=== PATIENT | male | born 1960 | race Caucasian/White ===

== ENCOUNTER → 2017-02-16 | Outpatient (CLI) | payer BC ==
--- NOTE | 2017-02-20 17:18 | PCVCIMAG ---
APPROVED REPORT Study performed: 02/16/2017 08:04:37 EXAM: Comprehensive 2D, Doppler, and color-flow Echocardiogram Patient Location: Echo lab Other Information Study Quality: Good Indications Murmur Hypertension/HDD 2D Dimensions LVEF(%): 73.82 (>50%) IVSd: 7.37 (7-11mm)LVOT Diam: 22.47 (18-24mm) LVDd: 47.72 mm PWd: 11.84 (7-11mm)Ascending Ao: 33.72 (22-36mm) LVDs: 27.30 (25-40mm) Left Atrium: 34.34 (27-40mm) Aortic Root: 26.92 mm LV Single Plane 4CH: 61.33 % LV Single Plane 2CH: 64.81 %Donohue's LVEF: 63.07 % Biplane EF: 63.4 % Volumes Left Atrial Volume (Systole) Single Plane 4CH: 52.37 mLSingle Plane 2CH: 85.86 mL LA ESV Index: 32.00 mL/m2 Aortic Valve AoV Peak [place].: 3.00 m/s AO Peak Gr.: 35.14 mmHgLVOT Max P.76 mmHg AO Mean Gr.: 22.38 mmHgLVOT Mean P.49 mmHg AO V2 Mean: 2.30 m/sLVOT Max V: 1.24 m/s AO V2 VTI: 69.19 cmLVOT Mean V: 0.89 m/s GLENN (VTI): 1.61 [id number] V1 VTI: 28.03 cm GLENN Vmax: 1.64 cm2 AI Vmax: 3.67 m/sSV (LVOT): 111.07 mL AI [place]: 1.37 m/s2 AI PHT: 773.98 ms Mitral Valve E/A Ratio: 0.9 MV Decel. Time: 253.81 ms MV E Max [place].: 0.86 m/s MV A [place].: 0.93 m/s MV PHT: 75.00 ms MVA (PHT): 2.93 cm2 TDI E/Lateral E': 10.75E/Medial E': 10.75 Medial E' [place].: 0.08 m/s Lateral E' [place].: 0.08 m/s Pulmonary Valve PV Peak [place].: 1.02 m/sPV Peak Gr.: 4.13 mmHg Pulmonary Vein P Vein S: 0.57 m/sP Vein A: 0.49 m/s P Vein D: 0.33 m/sP Vein A Dur.: 96.9 msec P Vein S/D Ratio: 1.73 Tricuspid Valve TR Peak [place].: 1.60 m/s TR Peak Gr.: 10.28 mmHg TV Vmax: 0.70 m/sPA Pressure: 17.00 mmHg Left Ventricle The left ventricle is normal size. There is normal LV segmental wall motion. There is normal left ventricular wall thickness. Left ventricular systolic function is normal. The left ventricular ejection fraction is within the normal range. LVEF is 60-65%. Transmitral Doppler flow pattern suggests impaired LV relaxation. Right Ventricle The right ventricle is normal size. The right ventricular systolic function is normal. Atria The left atrium size is normal. The right atrium size is normal. Aortic Valve Aortic valve is functionally bicuspid. 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 Mild aortic regurgitation. Moderate aortic stenosis. Highest mean aortic valve gradient is 22mmHg. Peak aortic valve gradient is 36mmHg. Calculated GLENN by the continuity equation is 1.4-1.5 cm2. Mitral Valve The mitral valve is normal in structure. There is no mitral valve regurgitation noted. No evidence of mitral valve stenosis. Tricuspid Valve The tricuspid valve is normal in structure. Trace tricuspid regurgitation. Pulmonic Valve The pulmonary valve is normal in structure. There is no pulmonic valvular regurgitation. Great Vessels The aortic root is normal in size. The ascending aorta is normal in size. IVC is normal in size and collapses with >50% inspiration The pulmonary artery is normal. Pericardium There is no pericardial effusion. <Conclusion> The left ventricle is normal size. LVEF is 60-65%. Aortic valve is functionally bicuspid. 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 Mild aortic regurgitation. Moderate aortic stenosis. Highest mean aortic valve gradient is 22mmHg. Peak aortic valve gradient is 36mmHg. Calculated GLENN by the continuity equation is 1.4-1.5 cm2. The mitral valve is normal in structure. The tricuspid valve is normal in structure. Trace tricuspid regurgitation. The pulmonary valve is normal in structure.
== END | disposition home or self-care (01) ==
LOC: PCVCIMAG 07:53
PROVIDERS: ATTEND Internal Medicine
DX: I35.2 Nonrheumatic aortic (valve) stenosis with insufficiency (principal); I07.1 Rheumatic tricuspid insufficiency; E03.9 Hypothyroidism, unspecified
CPT/HCPCS: 93306

== ENCOUNTER → 2019-05-14 | Outpatient (CLI) | payer BC ==
--- NOTE | 2019-05-14 15:47 | PCVCIMAG ---
APPROVED REPORT Study performed: 05/14/2019 13:20:47 EXAM: Comprehensive 2D, Doppler, and color-flow Echocardiogram Patient Location: Echo lab Status: routine BSA: 2.11 HR: 64 bpmBP: 124/90 mmHg Rhythm: NSR Other Information Study Quality: Adequate Risk Factors: Cardiac Risk Factors: HTN Indications Bicuspid aortic valve, aortic stenosis 2D Dimensions IVSd: 15.24 (7-11mm)LVOT Diam: 22.56 (18-24mm) LVDd: 43.53 mm PWd: 15.11 (7-11mm)Ascending Ao: 35.53 (22-36mm) LVDs: 28.11 (25-40mm) Left Atrium: 41.56 (27-40mm) Aortic Root: 35.10 mm LV Single Plane 4CH: 65.19 % LV Single Plane 2CH: 52.95 % Biplane EF: 60.3 % Volumes Left Atrial Volume (Systole) Single Plane 4CH: 74.17 mLSingle Plane 2CH: 117.98 mL LA ESV Index: 46.00 mL/m2 Aortic Valve AoV Peak [place].: 3.61 m/s AO Peak Gr.: 52.06 mmHgLVOT Max P.38 mmHg AO Mean Gr.: 27.89 mmHgLVOT Mean P.97 mmHg AO V2 Mean: 2.50 m/sLVOT Max V: 1.36 m/s AO V2 VTI: 78.60 cmLVOT Mean V: 0.93 m/s GLENN (VTI): 1.58 [id number] V1 VTI: 31.11 cm GLENN Vmax: 1.50 cm2 SV (LVOT): 124.33 mL Mitral Valve E/A Ratio: 0.8 MV Decel. Time: 319.15 ms MV E Max [place].: 0.81 m/s MV A [place].: 1.02 m/s IVRT: 117.65 ms Pulmonary Valve PV Peak [place].: 1.19 m/sPV Peak Gr.: 5.63 mmHg Pulmonary Vein P Vein S: 0.39 m/sP Vein A: 0.35 m/s P Vein D: 0.50 m/sP Vein A Dur.: 134.9 msec P Vein S/D Ratio: 0.78 Tricuspid Valve TR Peak [place].: 2.14 m/s TR Peak Gr.: 18.32 mmHg Left Ventricle The left ventricle is normal size. There is normal LV segmental wall motion. There is normal left ventricular wall thickness. Left ventricular systolic function is normal. The left ventricular ejection fraction is within the normal range. LVEF is 60%. Grade I - abnormal relaxation pattern. Right Ventricle The right ventricle is normal size. The right ventricular systolic function is normal. Atria Left atrium is mild-moderately dilated. Right atrium is mild-moderately dilated. Aortic Valve The aortic valve is moderately calcified. The aortic valve is bicuspid w/ raphe. Mild eccentric aortic regurgitation. There is mild to moderate valvular aortic stenosis. Calculated aortic valve area is 1.5 cm2 with maximum pressure gradient of 52 mmHg and mean pressure gradient of 28 mmHg. Mitral Valve Mild posterior mitral annular calcification. There is no mitral valve regurgitation noted. No evidence of mitral valve stenosis. Tricuspid Valve The tricuspid valve is normal in structure. Trace tricuspid regurgitation with PAP of 25 mmHg. Pulmonic Valve The pulmonary valve is normal in structure. Mild pulmonic regurgitation. Great Vessels The aortic root is normal in size. IVC is normal in size and collapses >50% with inspiration. Pericardium There is no pericardial effusion. There is no pleural effusion. <Conclusion> The left ventricle is normal size. LVEF is 60%. Left atrium is mild-moderately dilated. Right atrium is mild-moderately dilated. The aortic valve is moderately calcified. The aortic valve is bicuspid w/ raphe. Mild eccentric aortic regurgitation. There is mild to moderate valvular aortic stenosis. Calculated aortic valve area is 1.5 cm2 with maximum pressure gradient of 52 mmHg and mean pressure gradient of 28 mmHg. Mild posterior mitral annular calcification. The tricuspid valve is normal in structure. Trace tricuspid regurgitation with PAP of 25 mmHg. The pulmonary valve is normal in structure. Mild pulmonic regurgitation. The aortic root is normal in size. There is no pericardial effusion.
== END | disposition home or self-care (01) ==
LOC: PCVCIMAG 13:32
PROVIDERS: ATTEND Internal Medicine
DX: I11.9 Hypertensive heart disease without heart failure (principal); I08.8 Other rheumatic multiple valve diseases; E78.00 Pure hypercholesterolemia, unspecified; E07.9 Disorder of thyroid, unspecified; Z82.49 Family history of ischemic heart disease and other diseases of the circulatory system; Z72.89 Other problems related to lifestyle
CPT/HCPCS: 93306